=== PATIENT | male | born 1985 | race Caucasian/White ===

== ENCOUNTER 2016-12-20 16:37 | Emergency (ER) | payer SELFPAY ==
[~2016-12-20] VITALS: Ht 172.7 cm; Wt 87.1 kg
[2016-12-20 20:08] VITALS: BP 128/86
== END 2016-12-20 20:08 | disposition home or self-care (01) ==
LOC: ED 16:37
DX: S43.005A Unspecified dislocation of left shoulder joint, initial encounter (principal); X58.XXXA Exposure to other specified factors, initial encounter; Y93.89 Activity, other specified; Y99.8 Other external cause status; Y92.89 Other specified places as the place of occurrence of the external cause
CPT/HCPCS: J2704; J3010; Q0092; Q0162